=== PATIENT | female | born 1965 | race Caucasian/White ===

== ENCOUNTER 2018-12-03 13:47 | Outpatient (RCR) | payer OTHER, SELFPAY | END 2018-12-20 23:59 | LOC: NS 13:47 | PROVIDERS: Family Provider Nurse Practitioner Family; PCP Nurse Practitioner Family; Visit Provider Specialist | DX: Z71.3 Dietary counseling and surveillance (principal); E66.8 Other obesity; Z68.42 Body mass index [BMI] 45.0-49.9, adult | CPT/HCPCS: 97802 ==

== ENCOUNTER → 2018-12-04 09:29 | Outpatient (CLI) | payer OTHER, SELFPAY ==
[2018-12-04 12:24] LABS: Color, Urine Yellow (Yellow); Glucose, Dipstick Normal (Normal); Ketone-Dipstick 5 mg/dl (Negative); Leukocyte Esterase-Dipstick Negative /ul (Negative); Nitrite-Dipstick Negative (Negative); Occult Blood-Urine 10 /ul (Negative); Protein-Dipstick 30 mg/dl (Negative); Urine Bilirubin Dipstick Negative (Negative); Urine Clarity Sl. Cloudy (Clear); Urine Urobilinogen Normal (Normal)
[2018-12-04 12:25] LABS: Absolute Lymphocyte Count 1.89 X10^3/uL (0.83-4.51); Absolute Neutrophil Count 3.5 X10^3/uL (2.0-7.7); Basophil# 0.04 X10^3/uL; Basophil% 0.7 % (0-1); Eosinophil# 0.16 X10^3/uL; Eosinophils% 2.6 % (0-5); Hematocrit 41.6 % (37-47); Hemoglobin 13.1 g/dL (12.0-15.0); Lymphocyte # 1.89 X10^3/ul (4.0); Lymphocyte % 31.2 % (19-41); Mean Corp Hgb Conc 31.5 g/dL (32-36); Mean Corpuscular Hgb 28.5 pg (27.0-32.0); Mean Corpuscular Volume 90.4 fL (81-99); Mean Platelet Vol. 10.4 fl (6.2-12.0); Monocyte# 0.41 X10^3/uL; Monocyte% 6.8 % (0-10); NRBC Flagged by Analyzer 0 % (0-5); Neutrophil # 3.52 X10^3/uL (2.7-7.7); Neutrophil % 58.2 % (47-70); Platelet Count 243 K/mm3 (150-450); RBC Distribution Width CV 14.2 % (11.6-14.6); White Blood Count 6.1 K/mm3 (4.4-11.0)
[2018-12-04 12:37] LABS: Bacteria RARE /hpf (None Seen); Mucous, Urine 1+ /hpf (<or=2+); Red Blood Cells-Urine 0-5 SEEN /hpf (0-5); Squamous Epithelial Cells - UA 10-25 SEEN /hpf (5-10); White Blood Cells 0-5 SEEN /hpf (0-5)
[2018-12-04 12:38] LABS: ALB/GLOB Ratio 0.7 RATIO (0.9-2.4); AST(SGOT) 33 U/L (15-37); Alanine Aminotransfer ALT/SGPT 60 U/L (13-56); Albumin, Serum 3.1 g/dL (3.2-5.0); Alkaline Phosphatase 65 U/L (45-117); Anion Gap 6 (5-15); BUN 16 mg/dL (7-18); BUN/Creat Ratio 21.4 RATIO (10-20); Chloride 107 mmol/L (98-107); Creatinine, Serum 0.75 mg/dL (0.55-1.02); EST Glomerular Filtration Rate 86 mL/min (>60); Est Glom Filt Rate - Afr Amer 104 mL/min (>60); Globulin 4.5 g/dL (2.2-4.2); Glucose 140 mg/dL (74-106); Protein, Total 7.6 g/dL (6.4-8.2); Sodium Level 143 mmol/L (136-145)
== END ==
PROVIDERS: Family Provider Nurse Practitioner Family; PCP Nurse Practitioner Family; Referring Provider Dermatology; Visit Provider Dermatology
DX: L30.9 Dermatitis, unspecified (principal)
CPT/HCPCS: 36415; 80053; 81001; 85025; 87086; 87088

== ENCOUNTER → 2018-12-25 13:30 | Outpatient (CLI) | payer OTHER, SELFPAY ==
[2018-12-25 13:37] LABS: Bacteria 0 SEEN /hpf (None Seen); Mucous, Urine 0 SEEN /hpf (<or=2+); Red Blood Cells-Urine 0 SEEN /hpf (0-5); White Blood Cells 0 SEEN /hpf (0-5)
[2018-12-25 15:18] LABS: Color, Urine Yellow (Yellow); Glucose, Dipstick Normal (Normal); Ketone-Dipstick Negative (Negative); Leukocyte Esterase-Dipstick Negative /ul (Negative); Nitrite-Dipstick Negative (Negative); Occult Blood-Urine 10 /ul (Negative); Protein-Dipstick Negative (Negative); Urine Bilirubin Dipstick Negative (Negative); Urine Clarity Clear (Clear); Urine Urobilinogen Normal (Normal)
[2018-12-25 15:36] LABS: Squamous Epithelial Cells - UA 0-5 SEEN /hpf (5-10)
== END ==
PROVIDERS: Family Provider Nurse Practitioner Family; PCP Nurse Practitioner Family; Referring Provider Dermatology; Visit Provider Dermatology
DX: L30.9 Dermatitis, unspecified (principal); L29.8 Other pruritus
CPT/HCPCS: 81001; 87086; 87088

== ENCOUNTER 2019-01-07 18:00 | Outpatient (RCR) | payer OTHER, SELFPAY ==
--- NOTE | 2018-10-18 13:45 | HP.PTEVAL_ITS ---
Patient's Visit Information TYSON WHITEHEAD is a 53 year old F referred to Physical Therapy by Prosper Tijerina MD with a diagnosis of B knee OA. Date of Evaluation: 10/18/18 Physical Therapist: Keith Perez DPT, OCS, CSCS - Visit Plan Frequency: 2-3x /Week Duration: 4-6 Weeks Plan: 2-3x/week x 4-6 weeks in water for. 1. HS, ITB, quad stretches. 2. non damaging knee/hip and ankle AROM. 3. LE adn core strength. 4. calorie burning ex. Work to I in pool of her choice. - Subjective Findings: B knee pain. Stadning up after sitting long is challenging. Can't stadn very long. X rays showed bone on bone on both medial compartments. Has had cortisone adn uflexa adn land therapy which gave no lasting relief. On celebrex for pain whcih helps. Went off of it for a while and now back on. No exercises at home. Has steps at home which are painful. Knees have been hurting for 8-10 years. Sleep is interrupted due to RLS but knees are not comfortable and need moved. Straightening knees feel catching. Works at a [employer] 40 hrs per week. Hard to get up and walk. Basic ADLs are OK...struggle here adn there due to pain. Activities include outdoor in garden but unable for years due to knees, can't get up off floor. Will need replacements at some point but wants her to lose weight first. - Pain R knee Pain Intensity (Out of 10): 1 Pain Intensity Range: 0, 7 L knee Pain Intensity (Out of 10): 1 Pain Intensity Range: 1, 7 - Objective Has orthotics which did not help. Walks I with L antalgia today. Trasnfers slow but I. Steps reciprocal with one rail, painful L>R. AROM B knees -3 to 110 R adn 0-110 L. Painful end flexion. Hip aROM WFL 5 degrees hip extension. Ankle aROM WFL. HS and gastroc adn quad mod tight. strength hips 4- and ankles 4+ and knees 4/5 ext with L knee pain, 4- flexion without pain. Has very stiff and immobile B patella. Sensation LE WNL to gross lgiht touch. reflexes patella and achilles 2/3. + grind R and has varus type knees in WB especially noticeable on steps. - Balance Scores Functional Gait Assessment Score: 26 % Disability: 13.3400 - Goals Goal 1:: Sleep without interruption from knees each night Goal Time Frame: 4-6 Weeks Goal 2:: Pain in knees 75% better at 1/10 at worst adn manageable with ex. Goal Time Frame: 4-6 Weeks Goal 3:: <25% disability on LEFS Goal Time Frame: 4-6 Weeks Goal 4:: I approp aquatic HEP to cotninue to manage Goal Time Frame: 4-6 Weeks - Rehabilitation Potential Physical Therapy Diagnosis: B knee OA Rehabilitation Potential: Questionable - Anticipated Interventions Patient/Client Instruction: Educate patient on: Condition, Plan of Care For the Purpose of:: To decrease pain, To increase ROM, To increase tolerance to activity/condition/position Therapeutic Exercise to Include: Strength training, Flexibilty training, Gait and locomotor training, In an aquatic setting, Passive ROM, Active ROM For the Purpose of:: To decrease pain, To increase ROM, To improve muscle performance and motor function, To increase tolerance to activity/condition/position, To improve performance and independence with ADL's Thank you for the opportunity to evaluate your patient. For Medicare and Medicare HMO plans, please review the plan of care and approve it. It will need to be FAXED BACK to us at [phone] for Medicare purposes. For Medicare only, by signing this I certify the plan of care. Please let me know if there are questions or concerns regarding this plan of care. Physician Signature: Da te:
--- NOTE | 2018-11-27 13:50 | HP.PTREVAL ---
Prosper Tijerina MD, It has been my pleasure to treat TYSON WHITEHEAD over the last 8 visits for B knee OA. Please see the progress note below for an update on the physical therapy plan of care! Subjective: Still has rash and is prednisone. Dots on both legs. Knees feel OK as she is on prednisone. [place] swollen after pool. Half the time it helped and the other ones she hurt a little more. Wants to try more water therapy after her legs are healed. F/U with doctor Breezy in . Objective/Function: Pt feeling good and walking well today due to on prednisone for rash on legs. No antalgia in gait adn AROM 0-112 B knees without pain. Strength is 4/5 without pain. Pt doing better due to prednisone but still needs to progress to I and consisteny with pool ex that she has missed due to the rash. Appropriate to wrok toward I program in pool. Fair prognosis. Plan Plan: 2x/week for 3 weeks to continue to build consistency with pool workout relieving pain and work toward adn I pool program. Goals Goal 1:: Sleep without interruption from knees each night Goal Time Frame: 4-6 Weeks Goal Progress: Goal Met Goal 2:: Pain in knees 75% better at 1/10 at worst adn manageable with ex. Goal Time Frame: 4-6 Weeks Goal Progress: on prednisone. Goal 3:: <25% disability on LEFS Goal Time Frame: 4-6 Weeks Goal 4:: I approp aquatic HEP to cotninue to manage Goal Time Frame: 4-6 Weeks Goal Progress: not yet. Anticipated Interventions Patient/Client Instruction: Educate patient on: Condition, Plan of Care For the Purpose of:: To decrease pain, To increase ROM, To increase tolerance to activity/condition/position Therapeutic Exercise to Include: Strength training, Flexibilty training, Gait and locomotor training, In an aquatic setting, Passive ROM, Active ROM For the Purpose of:: To decrease pain, To increase ROM, To improve muscle performance and motor function, To increase tolerance to activity/condition/position, To improve performance and independence with ADL's Please do not hesitate to contact me at [phone] by phone or if you have questions or concerns regarding this new plan of care! Sincerely, Keith Perez, DPT, OCS, CSCS
--- NOTE | 2019-02-28 15:47 | HP.PT.NRP ---
HP - Discharge Summary (1) - Patient Information TYSON WHITEHEAD was seen in my office for initial evaluation on 10/18/18. The following Plan of Care was established for this patient: Initial Frequency: 2-3x /Week Initial Duration: 4-6 Weeks - Anticipated Interventions Patient/Client Instruction: Educate patient on: Condition, Plan of Care For the Purpose of:: To decrease pain, To increase ROM, To increase tolerance to activity/condition/position Therapeutic Exercise to Include: Strength training, Flexibilty training, Gait and locomotor training, In an aquatic setting, Passive ROM, Active ROM For the Purpose of:: To decrease pain, To increase ROM, To improve muscle performance and motor function, To increase tolerance to activity/condition/position, To improve performance and independence with ADL's This patient was last seen in our office 01/07/19. Pertinent comments regarding their Physical therapy will appear below: Pt seen 12 visits adn was 50% better with her aquatic therapy at most recent recheck. She neglected to attend or schedule any further visits. I will disocntinue her due to nonattendance as it has been nearly two months. At this point I will be discontinuing this patient from physical therapy. I would be happy to see this patient again in the future if found appropriate by the physician. Thank you! Keith Perez, DPT, OCS, CSCS
== END 2019-01-07 19:00 | disposition home or self-care (01) ==
LOC: PT 18:00
PROVIDERS: Family Provider Nurse Practitioner Family; PCP Nurse Practitioner Family; Referring Provider Specialist; Visit Provider Specialist
DX: M17.0 Bilateral primary osteoarthritis of knee (principal)
CPT/HCPCS: 97113; 97161; 97530

== ENCOUNTER 2019-01-15 13:00 | Outpatient (RCR) | payer OTHER, SELFPAY | END 2019-01-15 23:59 | disposition home or self-care (01) | LOC: NS 13:00 | PROVIDERS: Family Provider Nurse Practitioner Family; PCP Nurse Practitioner Family; Visit Provider Specialist | DX: Z71.3 Dietary counseling and surveillance (principal); E66.8 Other obesity; Z68.42 Body mass index [BMI] 45.0-49.9, adult | CPT/HCPCS: 97803 ==

== ENCOUNTER → 2019-02-06 17:30 | Outpatient (CLI) | payer OTHER, SELFPAY ==
--- NOTE | 2019-02-06 17:35 | CT_ITS ---
STUDY: CT ABDOMEN AND PELVIS WITH AND WITHOUT CONTRAST REASON FOR EXAM: Female, 53 years old. Microscopic hematuria RADIATION DOSAGE (If Supplied By Facility): CTDIvol = ( 34.56 ) mGy, DLP = ( 4276.30 ) mGycm TECHNIQUE: Transaxial images were obtained from the dome of the diaphragm to the symphysis pubis without oral contrast. 100ML ISOVUE 370 was administered. Sagittal and coronal images were reconstructed. Individualized dose optimization techniques were used for this CT. COMPARISON: None. FINDINGS: The visualized lung bases are unremarkable. The visualized portions of the heart are within normal limits. Fatty liver. Normal gallbladder and extrahepatic biliary system. Normal spleen. Normal pancreas. Normal bilateral adrenal glands. Normal right kidney. Normal left kidney. Normal visualized stomach. Normal small intestine. Normal colon. The appendix is visualized and appears normal. Normal abdominal aorta. Normal inferior vena cava. Normal retroperitoneum. Normal urinary bladder. Normal abdominal wall. Mild degenerative vertebral changes. CT/CT Abd/Pelvis W/WO Contrast IMPRESSION: Fatty liver. No renal or ureteral stones. No hydronephrosis. Electronically Signed: Shayne Herndon DO at 21:49 EST Tel [phone], Service support ,
== END ==
PROVIDERS: Family Provider Nurse Practitioner Family; PCP Nurse Practitioner Family; Referring Provider Nurse Practitioner Adult Health
DX: R31.29 Other microscopic hematuria (principal); Z87.442 Personal history of urinary calculi
CPT/HCPCS: 74178; Q9967

== ENCOUNTER → 2019-09-05 | Outpatient (CLI) | payer OTHER, SELFPAY ==
[2019-09-05 15:52] LABS: Bacteria 0 SEEN /hpf (None Seen)
[2019-09-05 16:54] LABS: Color, Urine Yellow (Yellow); Glucose, Dipstick Normal (Normal); Ketone-Dipstick Negative (Negative); Leukocyte Esterase-Dipstick Negative /ul (Negative); Nitrite-Dipstick Negative (Negative); Occult Blood-Urine 25 /ul (Negative); Protein-Dipstick Negative (Negative); Specific Gravity, Urine 1.015 (1.002-1.030); Urine Bilirubin Dipstick Negative (Negative); Urine Clarity Clear (Clear); Urine Urobilinogen Normal (Normal)
[2019-09-05 17:16] LABS: Hyaline Cast 0-5 SEEN /lpf (0-5); Mucous, Urine 1+ /hpf (<or=2+); Squamous Epithelial Cells - UA 0-5 SEEN /hpf (5-10)
[2019-09-05 17:19] LABS: Red Blood Cells-Urine 0-5 SEEN /hpf (0-5); White Blood Cells 0-5 SEEN /hpf (0-5)
== END | disposition home or self-care (01) ==
LOC: LABSPEC 15:42
PROVIDERS: PCP Nurse Practitioner Family; Referring Provider Nurse Practitioner Adult Health; Visit Provider Nurse Practitioner Adult Health
DX: R31.1 Benign essential microscopic hematuria (principal)
CPT/HCPCS: 81001

== ENCOUNTER 2022-11-21 17:30 | Outpatient (RCR) | payer OTHER, SELFPAY ==
--- NOTE | 2022-10-31 19:16 | HP.PTEVAL ---
Patient's Visit Information Visit Information Visit Information: TYSON WHITEHEAD is a 57 year old F referred to Physical Therapy by SRIDEVI Marks with a diagnosis of R LEG PAIN. Date of Evaluation: 10/31/22 Physical Therapist: Kaela Lares PT, Cert MDT Visit Plan Frequency: 2-3x /Week Duration: 4-6 Weeks Plan: FOCUS ON CORE STABILIZATION WITH A NEUTRAL SPINE. POSTURE CORRECTION/STRENGTHENING, INSTRUCTION IN APPROPRIATE BODY MECHANICS AND ACTIVITY MODIFICATIONS. DLS STARTING WITH A NEUTRAL SPINE PROGRESSING ROM TOLERATED AFTER 3 WEEKS IF LEG SX'S RESOLVE. LEIGH LE ROM, STRETCHING AND STRENGTHENING. HEP INSTRUCTION. 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 Disability: NO Present symptoms: R MID BACK PAIN, LOW BACK PAIN AND PAIN ALL THE WAY DOWN THE LEG INTO R FOOT AND TOES. R LE NUMBNESS AND TINGLING. Present since: JUNE OR JULY 2022 Pain Scale: WORST 8/10, LEAST 2/10 Currently: 2/10 Is it getting better, worse or staying the same: STAYING THE SAME Commenced as a result of: NO APPARENT REASON. Symptoms at onset: PAIN BEHIND R KNEE Worse: BENDING. TWISTING. EXERCISING HERE AT [employer] 3 TIMES A WEEK AND STARTED IN MID-AUGUST AFTER THE PAIN HAD ALREADY STARTED. STANDING. SITTING FOR TOO LONG. RISING FROM SITTING. SITTING DOWN. GOING UP AND DOWN STEPS. RECLINING IN LOUNGE CHAIR. Better: TYLONOL ARTHRITIS. SITTING IF STANDING. Disturbed sleep: YES - THE PAIN WAKES ME UP WHEN I ROLL OVER Previous history/Previous treatment: H/O CHIROPRACTIC X APPROX 20 YEARS. NO BACK SURGERY. NO JOSEE'S. NO PHYSICAL THERAPY. CHRONIC LOW BACK PAIN MANAGED WITH CHIROPRACTIC. NO HISTORY OF MID BACK PROBLEMS. Treatment this episode: ONE PCP VISIT AT [facility] WITH MELISSA CONNOR CNP LAST WEEK. X-RAY AND PT ORDERED. Coughing/sneezing/straining: NEGATIVE Gait: IF HAS PAIN IN SITTING IT FEELS BETTER TO WALK BUT IF WALKS VERY FAR (1/4 MILE OR MAYBE EVEN LESS) IT IS VERY PAINFUL AFTER (ESPECIALLY GOING UP HILL). PATIENT REPORTS ANY RECENT FALLS. Bowel or Bladder Dysfunction: NO Accidents: NO Unexplained weight loss: NO Imaging: LOW BACK X-RAY LAST WEEK IN [place] - PATIENT HAS NOT REC'D RESULTS. PMH/Recent major surgery: IDDM, HTN, HIGH CHOLESTEROL, SEVERE LEIGH KNEE ARTHRITIS, LEIGH FOOT ARTHRITIS. R ROTATOR SX 2018. PERIPHERAL NEUROPATHY. Objective Objective: Sitting/Standing Posture: POOR. FH. RSH'S. VERY SLOUCHED. POOR POSTURAL STRENGTH. Lordosis: NORMAL Lateral shift: NO Relevant shift: N/A Active Correction of posture: NE. ABLE TO FULLY CORRECT. Other Observations: THIS PATIENT AMBULATES INDEP'LY INTO PT WITHOUT ANY ASSISTIVE DEVICES OR LOB BUT WITH A MILD LIMP ON THE R LE. SHE IS ABLE TO TRANSFER INDEP'LY FROM SIT TO STAND WITHOUT UE ASSIST. LE EDEMA - PATIENT REPORTS IT IS CHRONIC AND INCREASES THE DAY GOES ON. Sensory deficit: LEIGH LE LIGHT TOUCH SENSATION GROSSLY INTACT AND SYMMETRICAL ROM deficit: TIGHT LEIGH HS'S AND GASTROC SOLEUS COMPLEX'S R > L. R KNEE ROM -20 TO 100 DEG FLEX. L KNEE - 11 DEG TO 112 DEG FLEXION. Motor deficit: R HIP 4-/5, KNEE 3-/5, ANKLE 5/5. L HIP 4/5, KNEE 4/5, ANKLE 5/5. PATIENT C/O INCREASED R LBP WITH LEIGH HIP TESTING R>L. Reflexes: LEIGH QUADS 1/3, LEIGH ACHILLES 2/3 Dural Signs: POSITIVE LEIGH LE'S. PATIENT ALSO HAS CATCHING IN THE R KNEE. Lumbar mvmt loss: flex - NIL ext - KYUNG R SG - MOD L SG - MOD PATIENT C/O INCREASED R LBP WITH LUMBAR ROM TESTING INTO EXTENSION, AND LEIGH SG'ING Core strength: POOR Palpation: NO ACUTE TENDERNESS OF THE THORACIC SPINE, THE LUMBAR SPINE, THE SACRAL, PELVIC OR HIP REGIONS. PATIENT DENIES R LE TENDERNESS. TREATMENT: NEUROMUSCULAR REEDUCATION - RETRAINING OF MVMT AND POSTURE FOR SITTING, LYING AND STANDING ACTIVITIES. Balance/Special Test Scores Oswestry Low Back Score: 13 Goals Goal 1:: DECREASE C/O BACK AND R LE SX'S Goal Time Frame: 4-6 Weeks Goal 2:: IMPROVE BENDING, RISING FROM SITTING, STANDING, WALKING, RECOVERY FROM WALKING, ADL, EXERCISE AND SLEEP (ROLLING OVER) FUNCTION. Goal Time Frame: 4-6 Weeks Goal 3:: INSTRUCT IN PROPHYLAXIS Goal Time Frame: 4-6 Weeks Anticipated Interventions Patient/Client Instruction: Educate patient on: Condition, Plan of Care and Risk Factors For the Purpose of:: To improve self management Therapeutic Exercise to Include: Strength training, Body mechanics, Postural training, Flexibilty training, Neuromotor development, In an aquatic setting and Dynamic Lumbar Stabilization For the Purpose of:: To decrease pain, To increase ROM, To improve muscle performance and motor function, To increase tolerance to activity/condition/position, To improve ability of physical actions for home/community/work/leisure and To improve gait and locomotor functions Text: Thank you for the opportunity to evaluate your patient. For Medicare and Medicare HMO plans, please review the plan of care and approve it. It will need to be FAXED BACK to us at [phone] for Medicare purposes. For Medicare only, by signing this I certify the plan of care. Please let me know if there are questions or concerns regarding this plan of care. Physician Signature: Date:
--- NOTE | 2022-11-21 18:00 | HP.PTDCSUM ---
Discharge Summary D/C summary: It has been my pleasure to treat TYSON WHITEHEAD referred by SRIDEVI Marks, with the diagnosis of R LEG PAIN for a total of 10 visit(s). Discharge Date: Please see the following information for a summary of their discharge status. Subjective Subjective: PATIENT REPORTS SHE HASN'T SEEN WHERE PT HAS MADE MUCH OF A DIFFERENCE AND SHE IS DISCOURAGED. PATIENT REPORTS SHE DID GET A CALL FROM HER DOCTORS OFFICE TELLING HER THAT THE X-RAYS SHOWED ARTHRITIS IN HER BACK. Pain R LE: Pain Intensity (Out of 10): 2 LB: Pain Intensity (Out of 10): 2 Overall Improvement % Improvement: 10 Objective Objective/Function: PATIENT WAS SEEN TODAY FOR RE-ASSESSMENT OF PROGRESS TOWARD THE SET PT GOALS AND THE NEED FOR FURTHER PHYSICAL THERAPY VS READINESS FOR DISCHARGE. PATIENT IS NOT IMPROVING. UPON EXAM TODAY THERE ARE NO SIGNIFICANT IMPROVEMENTS SINCE INITIAL EVAL. PHYSICIAN RE-ASSESSMENT RECOMMENDED. PATIENT AGREEABLE. Goals Goal 1:: DECREASE C/O BACK AND R LE SX'S Goal Progress: Not Progressing Goal 2:: IMPROVE BENDING, RISING FROM SITTING, STANDING, WALKING, RECOVERY FROM WALKING, ADL, EXERCISE AND SLEEP (ROLLING OVER) FUNCTION. Goal Progress: Not Progressing Goal 3:: INSTRUCT IN PROPHYLAXIS Goal Progress: Not Progressing Plan Plan: D/C DUE TO LACK OF PROGRESS. PATIENT AGREEABLE. D/C Information d/c sentence: If there are questions or concerns regarding this patient's physical therapy, please feel free to call me at [phone]. Thank you for the referral of this patient. Sincerely, Kaela Lares, PT, Cert MDT Balance/Gait/Functional tests Balance/Special Test Scores Oswestry Low Back Score: 13 Improvement % Improvement: 10
== END 2022-11-21 19:00 | disposition home or self-care (01) ==
LOC: PT 17:30
PROVIDERS: PCP Nurse Practitioner Family; Referring Provider Nurse Practitioner Family; Visit Provider Nurse Practitioner Family
DX: M79.604 Pain in right leg (principal)
CPT/HCPCS: 97035; 97110; 97112; 97162; 97164; 97530